=== PATIENT | female | born 1980 | race Caucasian/White ===

== ENCOUNTER 2019-04-07 08:37 | Emergency (ER) | payer BC ==
[~2019-04-07] VITALS: Ht 162.6 cm; Wt 61.2 kg
--- NOTE | 2019-04-07 08:50 | NUR ---
BIB FRIEND, HAD A SEIZURE 1 HOUR AGO WHILE ON THE CHAIR AND FELL FORWARD, LEFT SIDE OF THE ABRASION, PATIENT A/OX4, NO DISTRESS NOTED, SEIZURE PRECAUTION OBSERVED. PLACED ON THE MONITOR.
[2019-04-07] MEDS ORDERED: ONDANSETRON HCL/PF 4 MG/2 ML VIAL IVP ONE (09:00)
[2019-04-07] MEDS ORDERED: ONDANSETRON HCL/PF 4 MG/2 ML VIAL ONE (09:03)
[2019-04-07] MEDS ORDERED: LORAZEPAM 1 MG TABLET ONE (09:09)
[2019-04-07 09:12] LABS: EOSINOPHILS % (AUTO) 3.7 % (0.0-6.0); HEMATOCRIT 33 % (33-45); HEMOGLOBIN 11.5 g/dL (11.5-14.8); LYMPHOCYTES # (AUTO) 0.7 /CMM (0.8-4.8); LYMPHOCYTES % (AUTO) 20.9 % (20.0-44.0); MEAN CORPUSCULAR HGB CONC 35 g/dl (31.0-36.0); MEAN CORPUSCULAR VOLUME 95 fL (82-100); MONOCYTES # (AUTO) 0.3 /CMM (0.1-1.30); MONOCYTES % (AUTO) 9.2 % (2.0-12.0); NEUTROPHILS % (AUTO) 65.2 % (43.0-81.0); PLATELET COUNT (AUTO) 169 /CMM (150-450); RED BLOOD CELL COUNT(AUTO) 3.49 MIL/uL (4.0-5.2); WHITE BLOOD COUNT (AUTO) 3.1 K/uL (4.3-11.0)
[2019-04-07 09:20] LABS: CALCIUM, SERUM 8.1 mg/dL (8.5-10.1); CREATININE 0.7 mg/dL (0.6-1.3); POTASSIUM 3.8 mmol/L (3.5-5.1)
[2019-04-07 09:26] LABS: ALBUMIN 3.7 g/dL (3.4-5.0); BILIRUBIN,TOTAL 0.2 mg/dL (0.2-1.0); TOTAL PROTEIN, SERUM 6.8 g/dL (6.4-8.2)
[2019-04-07 09:29] VITALS: BP 100/72
[2019-04-07] MEDS ORDERED: LORAZEPAM 1 MG TABLET PO ONE (09:30)
--- NOTE | 2019-04-07 10:14 | NUR ---
IV removed. Catheter intact and site benign. Pressure and 4x4 applied to site. No bleeding noted. Patient discharged to home in stable condition. Written and verbal after care instructions given. Patient verbalizes understanding of instruction.
== END 2019-04-07 10:15 | disposition home or self-care (01) ==
LOC: ER 08:43
DX: R56.9 Unspecified convulsions (principal); D72.819 Decreased white blood cell count, unspecified; Z90.13 Acquired absence of bilateral breasts and nipples; Z85.3 Personal history of malignant neoplasm of breast
CPT/HCPCS: 36415; 80048; 80076; 85025; 85730; 96374; 99283; J2405